=== PATIENT | male | born 1945 | race Caucasian/White ===

== ENCOUNTER 2022-07-16 13:50 | Emergency (ER) | payer MEDICARE ==
[2022-07-16] VITALS (7 sets, daily range): BP systolic 120–147; BP diastolic 57–66
[~2022-07-16] VITALS: Ht 165.1 cm; Wt 69.0 kg
[~2022-07-16 13:50] MED LIST: CLARITIN10 MG PO; HYDROCHLORO25 MG/TAB PO; LIPITOR10 MG PO; PREDNISONE50 MG PO
[2022-07-16] MEDS ORDERED: EPIPEN 2-P0.3 MG/0.3 IM (16:34)
[2022-07-16] MEDS ORDERED: PREDNISONE50 MG PO (16:34)
[2022-07-16] MEDS ORDERED: ALLERGY RELF10 M3 PO (16:35)
== END 2022-07-16 17:02 | disposition home or self-care (01) ==
LOC: ED 13:50
DX: T63.421A Toxic effect of venom of ants, accidental (unintentional), initial encounter (principal); L50.0 Allergic urticaria